=== PATIENT | male | born 1945 | race Caucasian/White ===

== ENCOUNTER 2017-09-23 05:34 | Outpatient (CLI) | payer MEDICARE, OTHER ==
[~2017-09-23] VITALS: Ht 188 cm; Wt 99.8 kg
[2017-09-23] MEDS ORDERED: CHOL200025 PO (11:38)
[2017-09-23] MEDS ORDERED: OMEG100032 PO (11:38)
[2017-09-23] MEDS ORDERED: MULT-35 PO (11:38)
[2017-09-23] MEDS ORDERED: METF500T4 PO (11:38)
[2017-09-23] MEDS ORDERED: LECI12002 PO (11:38)
[2017-09-23] MEDS ORDERED: ENAL5TAB PO (11:38)
== END 2017-09-23 11:50 ==
LOC: PREOP 05:34
PROVIDERS: ATTEND Urology
DX: Z01.818 Encounter for other preprocedural examination (principal); N20.2 Calculus of kidney with calculus of ureter

== ENCOUNTER 2017-09-29 07:55 | Day surgery (SDC) | payer MEDICARE ==
[~2017-09-29] VITALS: Ht 188 cm; Wt 99.8 kg
[~2017-09-29 07:55] MED LIST: CHOL200025 PO; ENAL5TAB PO; LECI12002 PO; METF500T4 PO; MULT-35 PO; OMEG100032 PO
[2017-09-29 08:00] VITALS: BP 170/110
[2017-09-29] MEDS ORDERED: cefTRIAXone INJECTION 1,000 MG in NS (IVPB) 100 ML IV ONE (08:15)
[2017-09-29] MEDS: LACTATED RINGERS 1,000 ML IV PRN ×2 (08:20→10:00)
[2017-09-29 08:30] VITALS: BP 153/102
[2017-09-29] MEDS ORDERED: CATHETER FLUSH 10 ML SYR IV PRN (08:30)
[2017-09-29] MEDS ORDERED: cefTRIAXone 1 GM/NS 100 ML IVPB IV ONE ×2 (08:30)
[2017-09-29] MEDS ORDERED: fentaNYL INJECTION 100 MCG/2 ML AMP ONE (09:12)
[2017-09-29] MEDS ORDERED: MIDAZOLAM 2 MG/2 ML (VERSED) VIAL ONE (09:12)
[2017-09-29] MEDS ORDERED: LIDOCAINE PF 2% 5 ML (XYLOCAINE) VIAL ONE (09:14)
[2017-09-29] MEDS ORDERED: LIDOCAINE JELLY 2% (XYLOCAINE) 5 ML TUBE ONE (09:14)
[2017-09-29] MEDS ORDERED: SEVOFLURANE (ULTANE) 15 ML INHAL SOLN ONE (09:14)
[2017-09-29] MEDS ORDERED: ONDANSETRON 4 MG/2 ML (SDV) Z0FRAN ONE (09:14)
[2017-09-29] MEDS ORDERED: proPOfol 200 MG/20 ML (DIPRIVAN) VIAL IV ONE ×2 (09:14→09:57)
--- NOTE | 2017-09-29 09:17 | Progress Note-Pre Operative ---
Pre-Operative Progress Note H&P Reviewed The H&P was reviewed, patient examined and no changes noted. Date Seen by Provider: Sep 29, 2017 Time Seen by Provider: 09:16 Date H&P Reviewed: Sep 29, 2017 Time H&P Reviewed: 09:16 Pre-Operative Diagnosis: RT DISTAL URETERAL AND LT RENAL STONES MARKY ELIZONDO MD Sep 29, 2017 9:17 am
--- NOTE | 2017-09-29 09:24 | Progress Note-Post Operative ---
Post-Operative Progess Note Surgeon (s)/Stamp Maker (s) Surgeon MARKY ELIZONDO MD Stamp Maker: N/A Pre-Operative Diagnosis RT DISTAL URETERAL AND LT RENAL STONES Post-Operative Diagnosis SAME AND MEATAL STENOSIS Procedure & Operative Findings Date of Procedure 09/29/17 Procedure Performed/Findings URETHRAL DILATATION, RT URETEROSCOPY WITH STONE LITHOTRIPSY AND LT ESWL Anesthesia Type GENERAL Estimated Blood Loss Estimated blood loss (mL): N/A Specimens/Packing Specimens Removed N/A Packing: N/A MARKY ELIZONDO MD Sep 29, 2017 9:24 am
--- NOTE | 2017-09-29 09:42 | Diagnostic Imaging Report ---
INDICATION: Preop evaluation for right ureteral stone. COMPARISON: None available. FINDINGS: Patient's reported right ureteral stone is not radiographically apparent. No hyperdensities overlying the renal fossa to suggest renal calculi. Scattered pelvic phleboliths are seen. Posterior instrumented fusion in the lower lumbar spine along with multilevel discectomies. Nonobstructive bowel gas pattern. IMPRESSION: No radiographic apparent urinary tract calculi. Dictated by: Dictated on workstation # [id number]
[2017-09-29] MEDS ORDERED: FUROSEMIDE 40 MG/4 ML INJ (LASIX) ONE (10:00)
[2017-09-29] MEDS ORDERED: KETOROLAC 30 MG/ML VIAL ONE (10:00)
[2017-09-29] MEDS ORDERED: ROCURONIUM 10 MG/ML 5 ML SYRINGE IV ONE (10:03)
--- NOTE | 2017-09-29 10:10 | Discharge Inst-Urology ---
Discharge Inst-Urology Discharge Medications New, Converted, or Re-newed RX: RX on Chart Patient Instructions/Follow Up Plan Please make appointment to been seen in office in 2 weeks. KUB prior to it KUB on way home Post ESWL instructions Increase oral fluids for 48 hours and then as needed. Diet and Activity as tolerated. If questions or concerns contact your physician Or seek help at emergency department. MARKY ELIZONDO MD Sep 29, 2017 10:10 am
[2017-09-29] MEDS ORDERED: morphine INJ 10 MG/ML 1ML (SYR OR VIAL) ONE (10:35)
[2017-09-29] MEDS: LABETALOL HCL 20 MG/4 ML VIAL IV PRN ×3 (10:40→11:20)
[2017-09-29] MEDS: morphine INJ 10 MG/ML 1ML (SYR OR VIAL) IVP PRN ×2 (10:41→10:50)
[2017-09-29] MEDS ORDERED: ONDANSETRON 4 MG/2 ML (SDV) Z0FRAN IVP PRN (10:45)
[2017-09-29] MEDS ORDERED: MEPERIDINE (DEMEROL) INJ 50 MG/ML IVP PRN (10:45)
[2017-09-29 11:35] VITALS: BP 162/114
[2017-09-29] MEDS ORDERED: CIPR-225 PO ×2 (11:55→12:12)
[2017-09-29] MEDS ORDERED: TAMS0.4C98 PO ×2 (11:56→12:13)
[2017-09-29] MEDS ORDERED: HYDR-3870 PO ×2 (11:57→12:13)
[2017-09-29] MEDS ORDERED: PHEN-640 PO ×2 (11:58→12:14)
[2017-09-29 12:05] VITALS: BP 128/90
[2017-09-29 12:35] VITALS: BP 119/79
--- NOTE | 2017-09-29 12:48 | Diagnostic Imaging Report ---
INDICATION: Status post ESWL. COMPARISON: Earlier this same day. FINDINGS: Two supine radiographic views of the abdomen were obtained. Subtle extraosseous calcifications are seen projecting over the inferior pole of the left kidney. Multiple pelvic phleboliths are also noted. No unexpected radiopaque foreign bodies are identified. Post surgical changes in the lumbar spine are noted. The small bowel loops are nondistended. There is no large collection of free intraperitoneal air. IMPRESSION: 1. Probable left-sided nephrolithiasis. 2. Nonobstructed small bowel gas pattern. Dictated by: Dictated on workstation # [id number]
[2017-09-29 13:10] VITALS: BP 119/79
--- NOTE | 2017-09-29 15:02 | Anesthesia-General Post-Op ---
General Patient Condition Mental Status/LOC: Same as Preop Cardiovascular: Satisfactory Nausea/Vomiting: Absent Respiratory: Satisfactory Pain: Controlled Complications: Absent Post Op Complications Complications None Follow Up Care/Instructions Patient Instructions None needed. Anesthesia/Patient Condition Patient Condition Patient is doing well, no complaints, stable vital signs, no apparent adverse anesthesia problems. No complications reported per nursing. MELISSA NICOLAS CRNA Sep 29, 2017 15:02
--- NOTE | 2017-09-29 15:20 | OPERATIVE REPORT ---
DATE OF SERVICE: 09/29/2017 PREOPERATIVE DIAGNOSES: 1. Right ureteral stone, distal. 2. Left renal stone. POSTOPERATIVE DIAGNOSES: 1. Right ureteral stone, distal. 2. Left renal stone. 3. Meatal stenosis. OPERATION PERFORMED: Urethral dilatation, right ureteroscopy with stone lithotripsy and left ESWL. SURGEON: Wali Elizondo MD ANESTHESIA: General. COMPLICATIONS: None. DESCRIPTION OF PROCEDURE: Under satisfactory general anesthesia, the patient in lithotomy position on the cystoscopy table, genitalia were prepped and draped in the usual sterile fashion. The cystoscope was introduced under vision; however, there was a meatal stenosis not admitting the 23-Nauruan scope. Was dilated from 20 to 26 easily to admit the 23-Nauruan cystoscope. Anterior urethra revealed no further strictures. The prostate was mildly enlarged to a median bar. The bladder was entered and revealed some trabeculations. The right intramural portion of the ureter was hyperemic and somewhat swollen. The left one was normal. No foreign body, bladder tumor or stone visualized. Using the foroblique lens, I dilated the right ureteral orifice and intramural portion to accommodate a 6.9 Nauruan semirigid ureteroscope, visualized the stone that was impacted in the wall of the ureter. I went ahead and broke it up completely with the LithoClast at power of 5 in order not to lose proximally fragments to mostly into the bladder. I went beyond the stone. There were no further stones and went back distally, removed the ureteroscope, reinserted the cystoscope into the bladder and the patient was moved to the ESWL bed supine. The left renal stone was localized and shocks were delivered at kV of 5, a total of 2000 shocks. We could not visualize the stone any more. The patient received 40 mg of Lasix and 30 mg of Toradol IV at the end of the procedure. He tolerated the procedure and anesthesia well and was sent to recovery room in stable condition. Job ID: [id number] DocumentID: [id number] Dictated Date: 09/29/2017 10:14:13 [employer]ilities Motel Manager Date: 09/29/2017 15:20:12 Dictated By: WALI ELIZONDO MD
== END 2017-09-29 13:10 | disposition home or self-care (01) ==
LOC: SDC 07:55
PROVIDERS: ATTEND Urology
DX: N20.2 Calculus of kidney with calculus of ureter (principal); N35.9 Urethral stricture, unspecified; N40.0 Benign prostatic hyperplasia without lower urinary tract symptoms; I10 Essential (primary) hypertension; E11.9 Type 2 diabetes mellitus without complications; Z79.84 Long term (current) use of oral hypoglycemic drugs; Z79.899 Other long term (current) drug therapy
CPT/HCPCS: 74018; 82962; 87081

== ENCOUNTER 2022-06-06 09:05 | Emergency (ER) | payer MEDICARE ==
[~2022-06-06] VITALS: Ht 187.9 cm; Wt 90.7 kg
[~2022-06-06 09:05] MED LIST changes: +CIPR-225 PO; -ENAL5TAB PO; +ENLP5T PO; +HYDR-3870 PO; -LECI12002 PO; +METF-397 PO; -METF500T4 PO; +PHEN-640 PO; +TMSL.4C PO; +[UNRECOGNIZED DRUG - CODE] PO
--- NOTE | 2022-06-06 09:57 | ED Chest Pain ---
General Chief Complaint: Upper Extremity Stated Complaint: LEFT ARM/SIDE PAIN LEFT HAND TINGLING Nursing Triage Note: PATIENT C/O LEFT ARM (BICEP) PAIN AND TINGLING IN HIS HANDS AFTER SLEEPING TWO DAYS IN A ROW. STATES HE FEELS LIKE THERE IS A "LUMP IN HIS ARM AND IN HIS LOWER LEFT RIB AREA CAUSING HIM PAIN WELL. STATES HE TOOK TYLENOL AROUND 0500 THIS AM AND HAS HAD NO RELIEF OF HIS PAIN AND TINGLING. Source: patient Exam Limitations: no limitations History of Present Illness Date Seen by Provider: Jun 06, 2022 Time Seen by Provider: 09:45 Initial Comments Patient is a 77-year-old male who presents to the emergency room with a chief complaint of pain in his left bicep posterior upper arm, pain in his elbow and then tingling in the fingers of his left hand. He states shortly after that he noticed a pain in his left lower lateral rib cage. He rated it at about an 8. He states he was not nauseous, short of breath or sweaty when he noticed the pain yesterday morning. He took some Tylenol yesterday and had pain all day long. He actually presented to the emergency room yesterday for the pain but decided he did not want to be seen. When he woke up with the pain continuing today he took some Tylenol, obtain no relief and decided to come in. He has a history of hypertension and diabetes. He is not a smoker. He has no family history of coronary artery disease. He cannot recall any cardiac evaluations in his lifetime other than evaluations in the . No recent fevers, chills, productive cough. No personal or family history of blood clot. At the time of my evaluation the pain is down to a "1 or 2" from an 8 yesterday. Walking into the emergency room from the car outside did not intensify the pain. He states an actual fact standing up and moving around seems to relieve it a little bit. All other review of systems reviewed and negative except as stated. Timing/Duration: 12-24 hours Severity/Quality: mild, tightness Location: other (left lower chest) Radiation: arms (left upper arm, let elbow) Activities at Onset: none Prior CP/Workup: no prior chest pain, no prior cardiac workup ASA po KNOT TYING OPERATOR: No NTG SL KNOT TYING OPERATOR: No Associated Symptoms: denies symptoms Allergies and Home Medications Allergies Coded Allergies: No Known Drug Allergies (Unverified , 12/16/22) Patient Home Medication List Home Medication List Reviewed: Yes Cholecalciferol (Vitamin D3) (Vitamin D3) 2,000 Unit Tablet, 2,000 UNIT PO DAILY, (Reported) Entered as Reported by: NIKKO LOPEZ on 09/23/17 1138 Ciprofloxacin HCl (Cipro) 500 Mg Tablet, 500 MG PO BID, (Reported) Entered as Reported by: TAMIKA KAUFMAN on 09/29/17 1212 Enalapril Maleate (Enalapril Maleate) 5 Mg Tablet, 5 MG PO BID, (Reported) Entered as Reported by: NIKKO LOPEZ on 09/23/17 1138 Hydrocodone/Acetaminophen (Lorcet 5-325 mg Tablet) 1 Each Tablet, 1-2 TAB PO Q4H PRN for PAIN, (Reported) Entered as Reported by: TAMIKA KAUFMAN on 09/29/17 1213 Lecithin (Lecithin) 1,200 Mg Capsule, 1,200 MG PO DAILY, (Reported) Entered as Reported by: NIKKO LOPEZ on 09/23/17 1138 Metformin HCl (Metformin HCl) 500 Mg Tablet, 500 MG PO DAILY, (Reported) Entered as Reported by: NIKKO LOPEZ on 09/23/17 1138 Multivitamin (Daily Multiple Vitamin) 1 Each Tablet, 1 EACH PO DAILY, (Reported) Entered as Reported by: NIKKO LOPEZ on 09/23/17 1138 Shawnee-3/Dha/Epa/Fish Oil (Fish Oil 1,000 mg Softgel) 1,000 Mg Capsule, 1,000 MG PO DAILY, (Reported) Entered as Reported by: NIKKO LOPEZ on 09/23/17 1138 Phenazopyridine HCl (Pyridium) 200 Mg Tablet, 200 MG PO TID PRN for SPASMS, (Reported) Entered as Reported by: TAMIKA KAUFMAN on 09/29/17 1214 Tamsulosin HCl (Flomax) 0.4 Mg Cap, 0.4 MG PO DAILY, (Reported) Entered as Reported by: TAMIKA KAUFMAN on 09/29/17 1213 Review of Systems Review of Systems Constitutional: see HPI EENTM: No Symptoms Reported Respiratory: No Symptoms Reported Cardiovascular: Chest Pain (left lower chest) Gastrointestinal: No Symptoms Reported Genitourinary: No Symptoms Reported Musculoskeletal: other (left arm pain upper and elbow "tight band") Skin: no symptoms reported Psychiatric/Neurological: Other (paresthesia left hand (sxcludes thumb)) Past Myjghkq-Fpkvsz-Cwqinr Hx Patient Social History Tobacco Use?: No Use of E-Cig and/or Vaping dev: No Substance use?: No Alcohol Use?: No Pt feels they are or have been: No Immunizations Up To Date Influenza Vaccine Up-to-Date: No; Not Current First/Initial COVID19 Vaccinat: 2020 Second COVID19 Vaccination Karl: 2020 Seasonal Allergies Seasonal Allergies: No Past Medical History Surgery/Hospitalization HX: niddm, htn back surg, right shoulder surg, kidney stones Adenoidectomy, Tonsillectomy Hypertension Kidney Stones Arthritis Physical Exam Vital Signs Vital Signs - First Documented 06/06/22 09:11 Temp 36.2 Pulse 96 Resp 18 B/P (MAP) 180/96 (124) Pulse Ox 97 O2 Delivery Room Air Capillary Refill : Less Than 3 Seconds Height, Weight, BMI Height: 6'2.00" Weight: 220lbs. 0.0oz. [id number]; 25.00 BMI Method: General Appearance: No Apparent Distress, WD/WN Neck: Normal Inspection Respiratory: Lungs Clear, Normal Breath Sounds, No Accessory Muscle Use, No Respiratory Distress Cardiovascular: Regular Rate, Rhythm, Normal Peripheral Pulses Gastrointestinal: Non Tender, Soft Extremity: Normal Capillary Refill, Normal Inspection, Normal Range of Motion, Non Tender, No Pedal Edema, Other (Left UE, no swelling, no erythema; no reproducible tenderness. Good ROM left shoulder, elbow and wrist.) Neurologic/Psychiatric: Alert, Oriented x3, No Motor/Sensory Deficits, Normal Mood/Affect, powder compounder II-XII Norm as Tested Progress/Results/Core Measures Results/Orders Lab Results Laboratory Tests Test 06/06/22 10:40 Range/Units White Blood Count 7.3 4.3-11.0 10^3/uL Red Blood Count 5.74 H 4.30-5.52 10^6/uL Hemoglobin 17.3 13.3-17.7 g/dL Hematocrit 50 40-54 % Mean Corpuscular Volume 88 80-99 fL Mean Corpuscular Hemoglobin 30 25-34 pg Mean Corpuscular Hemoglobin Concent 34 32-36 g/dL Red Cell Distribution Width 12.8 10.0-14.5 % Platelet Count 258 130-400 10^3/uL Mean Platelet Volume 10.1 9.0-12.2 fL Immature Granulocyte % (Auto) 0 % Neutrophils (%) (Auto) 75 42-75 % Lymphocytes (%) (Auto) 12 12-44 % Monocytes (%) (Auto) 10 0-12 % Eosinophils (%) (Auto) 2 0-10 % Basophils (%) (Auto) 1 0-10 % Neutrophils # (Auto) 5.5 1.8-7.8 10^3/uL Lymphocytes # (Auto) 0.9 L 1.0-4.0 10^3/uL Monocytes # (Auto) 0.7 0.0-1.0 10^3/uL Eosinophils # (Auto) 0.1 0.0-0.3 10^3/uL Basophils # (Auto) 0.1 0.0-0.1 10^3/uL Immature Granulocyte # (Auto) 0.0 0.0-0.1 10^3/uL Prothrombin Time 12.8 12.2-14.7 SEC INR Comment 0.9 0.8-1.4 Activated Partial Thromboplast Time 30 24-35 SEC Sodium Level 137 135-145 MMOL/L Potassium Level 4.6 3.6-5.0 MMOL/L Chloride Level 101 98-107 MMOL/L Carbon Dioxide Level 23 21-32 MMOL/L Anion Gap 13 5-14 MMOL/L Blood Urea Nitrogen 19 H 7-18 MG/DL Creatinine 1.07 0.60-1.30 MG/DL Estimat Glomerular Filtration Rate 72 BUN/Creatinine Ratio 18 Glucose Level 193 H 70-105 MG/DL Calcium Level 9.9 8.5-10.1 MG/DL Corrected Calcium 9.6 8.5-10.1 MG/DL Magnesium Level 2.1 1.6-2.4 MG/DL Total Bilirubin 1.2 H 0.1-1.0 MG/DL Aspartate Amino Transf (AST/SGOT) 22 5-34 U/L Alanine Aminotransferase (ALT/SGPT) 27 0-55 U/L Alkaline Phosphatase 46 40-136 U/L Myoglobin 101.7 H 10.0-92.0 NG/ML Troponin I < 0.028 <0.028 NG/ML Total Protein 8.3 H 6.4-8.2 GM/DL Albumin 4.4 3.2-4.5 GM/DL My Orders Orders - CARA APODACA MD Cbc With Automated Diff (06/06/22 09:54) Magnesium (06/06/22 09:54) Chest 1 View, Ap/Pa Only (06/06/22 09:54) Ekg Tracing (06/06/22:54) Comprehensive Metabolic Panel (06/06/22:54) Myoglobin Serum (06/06/22 09:54) Protime With Inr (06/06/22:54) Partial Thromboplastin Time (06/06/22:54) O2 (06/06/22:54) Monitor-Rhythm Ecg Trace Only (06/06/22 09:54) Ed Iv/Invasive Line Start (06/06/22 09:54) Troponin I James (06/06/22 09:54) Aspirin Chewable Tablet (Baby Aspirin Ch (06/06/22 10:00) Medications Given in ED Vital Signs/I&O 06/06/22 06/06/22 09:11 12:00 Temp 36.2 Pulse 96 75 Resp 18 16 B/P (MAP) 180/96 (124) 157/93 Pulse Ox 97 97 O2 Delivery Room Air Room Air Blood Pressure Mean: 124 Progress Progress Note : Time: 11:42 Progress Note Patient seen and evaluated, 77-year-old with hypertension and diabetes and left arm pain and paresthesia. Evaluation today includes "cardiac work-up" with troponin, EKG, chest x-ray and basic labs. Labs are reviewed and are generally within normal limits. No troponin elevation in the setting of pain lasting longer than 6 hours. His EKG is normal sinus at [address] segment elevation or depression. His vital signs have been stable. His blood pressure is good his oxygen is 96% on room air. He is in no respiratory distress. Co nsideration for CT angio of the chest to rule out PE however history and physical exam do not support the need. Patient feels better at the time of discharge the pain in his arm is gone. He still has some tingling in his fingers. He has follow-up scheduled with his primary care provider in July. I gave him return precautions to which she verbalized understanding. His is at the bedside and is also agreeable. All questions are sought and answered. Patient is stable for discharge. Initial ECG Impression Date: Jun 06, 2022 Initial ECG Impression Time: 10:05 Initial ECG Rate: 88 Initial ECG Rhythm: Normal Sinus Initial ECG Impression: Nonspecific Changes Comment No ST segment elevation or depression, no ectopy Diagnostic Imaging Diagonstic Imaging: Xray Plain Films/CT/US/NM/MRI: chest Comments [facility] [place] NAME: YARI ARRIETA [facility] REC#: [id number] PT STATUS: REG ER : 1945 PHYSICIAN: CARA APODACA MD ADMIT DATE: 06/06/22/ER Draft Date of Exam:06/06/22 CHEST 1 VIEW, AP/PA ONLY INDICATION: Chest pain. FINDINGS: The lungs are well aerated and clear. The heart is not enlarged. No pulmonary edema. No pneumothorax or pleural effusions. IMPRESSION: Normal portable chest. Dictated on workstation # [id number] Dict: 06/06/22 1038 Trans: 06/06/[address] [facility] [id number] Interpreted by: CALDERON RAMOS MD Electronically signed by: Departure Impression Primary Impression: Paresthesia and pain of left extremity Additional Impressions: H/O: hypertension H/O diabetes mellitus Disposition: 01 HOME, SELF-CARE Condition: Improved Departure-Patient Inst. Decision time for Depature: 11:45 Referrals: AMMY SHERIFF MD (PCP/Family) Primary Care Physician ED KNIGHT MD FACP FAC CCDS Patient Instructions: Chest Pain Add. Discharge Instructions: If your pain comes back with exertion, especially if you have sweating, nausea or shortness of breath with it, if the pain is radiating into your back or jaw please come back to the emergency room for reevaluation. Keep your follow-up appointment as scheduled with your primary care provider. Please take a baby aspirin daily. I have put contact information for our investigative research specialist on-call, Dr. Knight. You might consider calling his office for a follow-up appointment for further cardiac evaluation, as you are at slightly higher risk with your history of high blood pressure, diabetes. Copy Copies To 1: AMMY SHERIFF MD, KATHRYN M MD Jun 06, 2022 09:56
[2022-06-06] MEDS ORDERED: ASPIRIN 81 MG CHEW (CHILDREN'S ASA) PO ONE (10:00)
--- NOTE | 2022-06-06 10:41 | Diagnostic Imaging Report ---
INDICATION: Chest pain. FINDINGS: The lungs are well aerated and clear. The heart is not enlarged. No pulmonary edema. No pneumothorax or pleural effusions. IMPRESSION: Normal portable chest. Dictated by: Dictated on workstation # [id number]
[2022-06-06 10:46] LABS: BASOPHILS # (AUTO) 0.1 10^3/uL (0.0-0.1); BASOPHILS % (AUTO) 1 % (0-10); EOSINOPHILS # (AUTO) 0.1 10^3/uL (0.0-0.3); EOSINOPHILS % (AUTO) 2 % (0-10); HEMATOCRIT 50 % (40-54); HEMOGLOBIN 17.3 g/dL (13.3-17.7); LYMPHOCYTES # (AUTO) 0.9 10^3/uL (1.0-4.0); LYMPHOCYTES % (AUTO) 12 % (12-44); MEAN CORPUSCULAR HEMOGLOBIN 30 pg (25-34); MEAN CORPUSCULAR HGB CONC 34 g/dL (32-36); MEAN CORPUSCULAR VOLUME 88 fL (80-99); MEAN PLATELET VOLUME 10.1 fL (9.0-12.2); MONOCYTES # (AUTO) 0.7 10^3/uL (0.0-1.0); MONOCYTES % (AUTO) 10 % (0-12); NEUTROPHILS # (AUTO) 5.5 10^3/uL (1.8-7.8); NEUTROPHILS % (AUTO) 75 % (42-75); PLATELET COUNT 258 10^3/uL (130-400); WHITE BLOOD COUNT 7.3 10^3/uL (4.3-11.0)
[2022-06-06 11:04] LABS: INR 0.9 (0.8-1.4); PROTHROMBIN TIME PATIENT 12.8 SEC (12.2-14.7)
[2022-06-06 11:05] LABS: ALBUMIN 4.4 GM/DL (3.2-4.5)
[2022-06-06 11:06] LABS: POTASSIUM 4.6 MMOL/L (3.6-5.0)
[2022-06-06 11:07] LABS: CALCIUM 9.9 MG/DL (8.5-10.1)
[2022-06-06 11:08] LABS: TOTAL PROTEIN 8.3 GM/DL (6.4-8.2)
[2022-06-06 11:10] LABS: BILIRUBIN,TOTAL 1.2 MG/DL (0.1-1.0)
[2022-06-06 11:12] LABS: CREATININE SERUM 1.07 MG/DL (0.60-1.30)
[2022-06-06 11:14] LABS: MAGNESIUM 2.1 MG/DL (1.6-2.4)
[2022-06-06 12:00] VITALS: BP 157/93
== END 2022-06-06 11:59 | disposition home or self-care (01) ==
LOC: EDUNIT# 09:05 → ER 09:07
DX: M79.622 Pain in left upper arm (principal); R20.2 Paresthesia of skin; I10 Essential (primary) hypertension; E11.9 Type 2 diabetes mellitus without complications
CPT/HCPCS: 36415; 71045; 80053; 83735; 83874; 84484; 85025; 85610; 85730; 93005; 93041

== ENCOUNTER 2023-01-28 08:33 | Outpatient (RCR) | payer MEDICARE ==
[~2023-01-28 08:33] MED LIST changes: +ENAL-66 PO; -ENLP5T PO
[2023-01-28 11:04] LABS: BASOPHILS % (AUTO) 1 % (0-10); EOSINOPHILS # (AUTO) 0.2 10^3/uL (0.0-0.3); EOSINOPHILS % (AUTO) 3 % (0-10); HEMATOCRIT 49 % (40-54); HEMOGLOBIN 16.2 g/dL (13.3-17.7); LYMPHOCYTES % (AUTO) 17 % (12-44); MEAN CORPUSCULAR HEMOGLOBIN 30 pg (25-34); MEAN CORPUSCULAR HGB CONC 33 g/dL (32-36); MEAN CORPUSCULAR VOLUME 91 fL (80-99); MEAN PLATELET VOLUME 10.3 fL (9.0-12.2); MONOCYTES # (AUTO) 0.6 10^3/uL (0.0-1.0); MONOCYTES % (AUTO) 10 % (0-12); NEUTROPHILS # (AUTO) 4.1 10^3/uL (1.8-7.8); NEUTROPHILS % (AUTO) 69 % (42-75); PLATELET COUNT 215 10^3/uL (130-400); WHITE BLOOD COUNT 5.9 10^3/uL (4.3-11.0)
[2023-01-28] MEDS ORDERED: LEUPROLIDE 22.5 MG SYRINGE (ELIGARD) SQ SCH (11:15)
[2023-01-28 11:19] LABS: ALBUMIN 4.4 GM/DL (3.2-4.5); BILIRUBIN,TOTAL 1.1 MG/DL (0.1-1.0); CALCIUM 9.5 MG/DL (8.5-10.1); CREATININE SERUM 0.9 MG/DL (0.60-1.30); POTASSIUM 4.6 MMOL/L (3.6-5.0)
== END 2023-02-19 | disposition home or self-care (01) ==
LOC: ONC 08:33
PROVIDERS: ATTEND Internal Medicine Hematology & Oncology
DX: Z51.11 Encounter for antineoplastic chemotherapy (principal); C61 Malignant neoplasm of prostate
CPT/HCPCS: 80053; 84153; 85025; 96402; G0463 ×2; 99204; 99205

== ENCOUNTER 2023-04-20 08:14 | Outpatient (RCR) | payer MEDICARE ==
[2023-04-20 09:05] LABS: BASOPHILS # (AUTO) 0.1 10^3/uL (0.0-0.1); BASOPHILS % (AUTO) 1 % (0-10); EOSINOPHILS # (AUTO) 0.3 10^3/uL (0.0-0.3); EOSINOPHILS % (AUTO) 5 % (0-10); HEMATOCRIT 46 % (40-54); HEMOGLOBIN 15.4 g/dL (13.3-17.7); LYMPHOCYTES # (AUTO) 0.9 10^3/uL (1.0-4.0); LYMPHOCYTES % (AUTO) 15 % (12-44); MEAN CORPUSCULAR HEMOGLOBIN 30 pg (25-34); MEAN CORPUSCULAR HGB CONC 34 g/dL (32-36); MEAN CORPUSCULAR VOLUME 88 fL (80-99); MEAN PLATELET VOLUME 10.2 fL (9.0-12.2); MONOCYTES # (AUTO) 0.6 10^3/uL (0.0-1.0); MONOCYTES % (AUTO) 11 % (0-12); NEUTROPHILS # (AUTO) 3.8 10^3/uL (1.8-7.8); NEUTROPHILS % (AUTO) 67 % (42-75); PLATELET COUNT 183 10^3/uL (130-400); WHITE BLOOD COUNT 5.6 10^3/uL (4.3-11.0)
[2023-04-20 09:25] LABS: ALBUMIN 3.9 GM/DL (3.2-4.5); BILIRUBIN,TOTAL 0.7 MG/DL (0.1-1.0); CALCIUM 8.9 MG/DL (8.5-10.1); CREATININE SERUM 0.87 MG/DL (0.60-1.30); POTASSIUM 3.8 MMOL/L (3.6-5.0); TOTAL PROTEIN 7.3 GM/DL (6.4-8.2)
== END 2023-04-21 | disposition home or self-care (01) ==
LOC: ONC 08:14
PROVIDERS: ATTEND Internal Medicine Hematology & Oncology
DX: C61 Malignant neoplasm of prostate (principal)
CPT/HCPCS: 36415; 80053; 84153; 85025

== ENCOUNTER 2023-04-28 05:26 | Outpatient (CLI) | payer MEDICARE ==
[~2023-04-28] VITALS: Ht 188 cm; Wt 89.1 kg
[2023-04-30] MEDS ORDERED: METF-479 PO (10:08)
[2023-04-30] MEDS ORDERED: DOCU-163 PO (10:08)
== END 2023-04-30 10:30 | disposition home or self-care (01) ==
LOC: PREOP 05:26
PROVIDERS: ATTEND Specialist
DX: Z01.818 Encounter for other preprocedural examination (principal)

== ENCOUNTER 2023-05-05 05:50 | Day surgery (SDC) | payer MEDICARE ==
[2023-05-05] VITALS (9 sets, daily range): BP systolic 132–170; BP diastolic 75–98
[~2023-05-05] VITALS: Ht 188 cm; Wt 89.1 kg
[~2023-05-05 05:50] MED LIST changes: +DOCU-163 PO; +METF-479 PO
[2023-05-05] MEDS ORDERED: LACTATED RINGERS 1,000 ML 1,000 ML IV PRN (06:30)
[2023-05-05] MEDS ORDERED: fentaNYL INJECTION 100 MCG/2 ML VIAL ONE (07:23)
--- NOTE | 2023-05-05 08:22 | Progress Note-Pre Operative ---
Pre-Operative Progress Note Date of Available H&P: Apr 28, 2023 Date H&P Reviewed: May 05, 2023 Time H&P Reviewed: 08:21 History & Physical: H&P Reviewed, Patient Examed, No changes noted Pre-Operative Diagnosis: Prostate cancer Aysha BEST MD May 05, 2023 08:22
[2023-05-05] MEDS ORDERED: SEVOFLURANE (ULTANE) 15 ML INHAL SOLN ONE ×2 (08:33→08:47)
[2023-05-05] MEDS ORDERED: proPOfol INJECTION 200 MG/20 ML VIAL IV ONE (08:33)
[2023-05-05] MEDS ORDERED: ONDANSETRON INJECTION 4 MG/2 ML (SDV) ONE (08:33)
[2023-05-05] MEDS ORDERED: LIDOCAINE PF 2% 5 ML VIAL ONE (08:33)
--- NOTE | 2023-05-05 08:51 | Progress Note-Post Operative ---
Post-Operative Progess Note Surgeon (s)/Bi Data Modeler (s) Surgeon Aysha BEST MD Bi Data Modeler n/a Pre-Operative Diagnosis Prostate cancer Post-Operative Diagnosis same Post-Op Procedure Note Date of Procedure: May 05, 2023 Name of Procedure Performed: Transperineal placement of gold fiducial markers with transrectal ultrasound guidance. Transperineal injection of resorbable prostate-rectal spacer using the [employer] Cori system with transrectal ultrasound guidance Description & Findings Description and Findings: n/a Estimated Blood Loss minimal Packing none. Specimen(s) collected/removed No Aysha BEST MD May 05, 2023 08:51
--- NOTE | 2023-05-05 08:57 | Anesthesia-General Post-Op ---
General Patient Condition Mental Status/LOC: Same as Preop Cardiovascular: Satisfactory Nausea/Vomiting: Absent Respiratory: Satisfactory Pain: Controlled Complications: Absent Post Op Complications Complications None Follow Up Care/Instructions Patient Instructions None needed. Anesthesia/Patient Condition Patient Condition Patient is doing well, no complaints, stable vital signs, no apparent adverse anesthesia problems. No complications reported per nursing. MELISSA NICOLAS CRNA May 05, 2023 08:57
[2023-05-05] MEDS ORDERED: fentaNYL INJECTION 100 MCG/2 ML VIAL IVP ONE (09:00)
[2023-05-05] MEDS ORDERED: ONDANSETRON INJECTION 4 MG/2 ML (SDV) IVP PRN (09:00)
== END 2023-05-05 10:45 | disposition home or self-care (01) ==
LOC: SDC 05:50
PROVIDERS: ATTEND Specialist
DX: C61 Malignant neoplasm of prostate (principal); Z87.891 Personal history of nicotine dependence
CPT/HCPCS: 55874; 55876; 82947; 87081; A4648; C1889

== ENCOUNTER → 2023-05-06 | Outpatient (CLI) | payer MEDICARE ==
[~2023-05-06] MED LIST changes: +GADOTERATE 0.5 MMOL/ML (CLARISCAN) 20 ML VIAL IV ONE
--- NOTE | 2023-05-06 14:55 | Diagnostic Imaging Report ---
PROCEDURE: MRI pelvis without contrast. TECHNIQUE: Multiplanar, multisequence MRI of the pelvis was performed without contrast. INDICATION: Malignant neoplasm of the prostate. Preprocedure planning for hydrogel placement. COMPARISON: None available. FINDINGS: Please note examination is not performed with a prostate protocol that can be utilized to evaluate suspicious lesions as the software on this magnet. Exam was performed to evaluate placement of hydrocele. There is a T1 hypointense and T2 hyperintense cystic collection in the anterior wall of the lower rectum at the level the prostate. This measures 3.2 x 2.3 x 2.2 cm and is likely the hydrocele placed within the wall of the rectum. Additionally there is a small focus of air within this intramural collection. There is no T2 hyperintense gel/fluid in the space between the prostate and rectum. Left posterior aspect of the prostate, there is a T1 hyperintense presumed hemorrhage that abuts the anterior wall of the rectum. This subacute hemorrhage measures approximately 3.0 x 1.7 x 1.7 cm. No regional lymphadenopathy is noted. No concerning focal osseous lesions. IMPRESSION: 1. There is a cystic collection in the anterior wall of the lower rectum at the level of the prostate that is likely the hydrogel that has intramural position within the rectum. 2. There is no gel within the space between the prostate and rectum. Dictated by: Dictated on workstation # [id number]
== END ==
LOC: RAD 09:17
PROVIDERS: ATTEND Radiology Radiation Oncology
DX: C61 Malignant neoplasm of prostate (principal); K62.89 Other specified diseases of anus and rectum
CPT/HCPCS: 72195

== ENCOUNTER → 2023-05-21 | Outpatient (RCR) | payer MEDICARE ==
[~2023-05-21] MED LIST changes: -GADOTERATE 0.5 MMOL/ML (CLARISCAN) 20 ML VIAL IV ONE; +LEUPROLIDE 22.5 MG SYRINGE (ELIGARD) SQ SCH
== END | disposition home or self-care (01) ==
LOC: ONC 04-22 08:34
PROVIDERS: ATTEND Internal Medicine Hematology & Oncology
DX: Z51.11 Encounter for antineoplastic chemotherapy (principal); Z51.0 Encounter for antineoplastic radiation therapy; C61 Malignant neoplasm of prostate
CPT/HCPCS: 96402; G0463; 77300; 77301; 77334; 77338; 77385; 99214